=== PATIENT | female | born 1975 | race Caucasian/White ===

== ENCOUNTER 2025-08-31 03:33 | Emergency (ER) | payer BC ==
[~2025-08-31] VITALS: Ht 165.1 cm; Wt 65.9 kg
--- NOTE | 2025-08-31 04:00 | Physician Documentation ---
History of Present Illness General Chief Complaint: Abdominal Pain Stated Complaint: ABD PAIN Time Seen by MD: 03:50 History of Present Illness Initial Comments This is a 50-year-old female who presents for evaluation of lower abdominal pain, nausea, diarrhea. She states that she has SIBO and she has been treating it. She subsequently developed her symptoms. No palliating or aggravating factors. She states that her symptoms began a week ago. She has a gone to [facility] four days ago where she had received a workup including the CT scan with contrast. She received IV fluids. Her symptoms had improved. She did not request evaluation for rectal prolapse, however apparently they did not examine her for such. She has been discharged because she was feeling better. She has a recrudescence of her symptoms a proximally 48 hours after being discharged from [facility]. The pain is diffuse, started out in her lower abdomen, ascend is in her epigastrium. It is accompanied with diarrhea. She does report that when she vomitus she does not really vomiting anything, but retching makes her feel like her GI tract stuck at the junction of stomach and esophagus. Did not attempt to treat her pain with a any medication because I prefer to do everything the naturally". Medication Reconciliation Allergies: Coded Allergies: No Known Allergies (Unverified , 08/31/25) Review of Systems ROS 10 point review of systems was performed and unless noted above in HPI is negative for acute process/complaint. Physical Exam Physical Exam Vital Signs: Temperature: 98.7, Source: Oral, Heart Rate: 99, Respiratory Rate: 22, BP: 99/76, Pulse Oximetry: 100, Weight: 65.900 Physical Exam GENERAL: Awake, alert, oriented, GCS 15, no apparent distress, non-toxic appearing, answers questions, follows commands appropriately. Examined in bed 2. HEENT: Atraumatic, normocephalic, pupils equal, extraocular muscles intact, sclerae anicteric, mucus membranes moist, oropharynx is clear, no stridor. NECK: supple, full active range of motion, trachea midline, no thyromegaly, no lymphadenopathy, no JVD. CARDIOVASCULAR: regular rate/rhythm, no murmurs/gallops/rubs, Pulses are 2+ in all extremities and symmetric. Capillary refill less than 2 seconds. PULMONARY: Nonlabored, good air movement ,no respiratory distress, speaking in full sentences, clear to auscultation bilaterally, no wheezing, no ronchi, no rales, no accessory muscle use. GASTROINTESTINAL: Soft, diffuse abdominal tenderness to palpation without guarding or rebound, non-distended, normal active bowel sounds, no organomegaly, no pulsatile masses, no CVA tenderness. NEUROLOGIC: Lucid with normal mental status. Normal facial symmetry. Moves all extremities symmetrically and with purpose. No truncal ataxia. Speech is fluid without evidence of dysarthria or aphasia, no focal deficits appreciated. MUSCULOSKELETAL: There is full range of motion of all extremities. There is no joint pain or joint swelling or joint erythema. There is no muscle pain or tenderness or swelling. EXTREMITIES: warm, well-perfused, no cyanosis, no clubbing, no edema, no acute deformities. Skin: warm, dry, no rashes or lesions, no jaundice, no petechiae orpurpura. No ecchymosis. PSYCHIATRIC: Tearful affect, normal insight, normal concentration. Focused exam: [] Progress Results/Orders Results/Orders Vital Signs 08/31/25 08/31/25 08/31/25 08/31/25 03:40 04:11 04:27 05:00 Temp 98.7 98.7 98.7 Pulse 99 84 77 Resp 22 20 22 16 B/P (MAP) 99/76 123/74 (90) 116/66 (83) Pulse Ox 100 100 96 08/31/25 08/31/25 08/31/25 08/31/25 06:17 07:11 07:33 08:48 Pulse 76 80 83 Resp 16 16 16 16 B/P (MAP) 107/60 (76) 127/79 (95) 128/70 (89) Pulse Ox 97 95 97 O2 Flow Rate 0 0 0 08/31/25 08:49 Pulse 83 Resp 16 B/P (MAP) 128/70 Pulse Ox 97 Laboratory Tests Test 08/31/25 03:55 08/31/25 07:02 White Blood Count 8.3 Red Blood Count 4.65 Hemoglobin 14.0 Hematocrit 40.5 Mean Corpuscular Volume 87.2 Mean Corpuscular Hemoglobin 30.2 Mean Corpuscular Hemoglobin Concent 34.7 Red Cell Distribution Width 12.6 Platelet Count 255 Mean Platelet Volume 7.8 Neutrophils (%) (Auto) 91.3 H Lymphocytes (%) (Auto) 3.6 L Monocytes (%) (Auto) 4.6 Eosinophils (%) (Auto) 0.2 Basophils (%) (Auto) 0.3 Neutrophils # (Auto) 7.5 Lymphocytes # (Auto) 0.3 L Monocytes # (Auto) 0.4 Eosinophils # (Auto) 0.0 Basophils # (Auto) 0.0 CBC Comment Urine Specimen Description Cln catch midstream Urine Color Yellow Urine Clarity Clear Urine pH 6.0 Urine Specific [place] 1.020 Urine Protein Negative Urine Glucose (UA) Negative Urine Ketones Trace H Urine Occult Blood Trace-intact Urine Nitrite Negative Urine Bilirubin Negative Urine Urobilinogen 0.2 Urine Leukocyte Esterase Negative Urine RBC 0-2 Urine WBC 0-4 Urine Squamous Epithelial Cells None seen Urine Bacteria Few Urine Mucus Moderate Urine Culture Indicated Not ind Volume Urine Centrifuged 10 ml Urine HCG, Qualitative Negative Urine Comment Sodium Level 139 Potassium Level 3.8 Chloride Level 105 Carbon Dioxide Level 25.2 Anion Gap 9 Blood Urea Nitrogen 17 Creatinine 0.83 Estimated GFR/1.73 m2 73 BUN/Creatinine Ratio 20.5 H Glucose Level 115 H Calcium Level 8.9 Total Bilirubin 1.0 Aspartate Amino Transf (AST/SGOT) 65 H Alanine Aminotransferase (ALT/SGPT) 125 H Alkaline Phosphatase 61 Troponin I High Sensitivity < 4 L 4 Troponin I High Sens Percent Delta Troponin I Hi Sens Absolute Change Total Protein 7.7 Albumin 3.9 Globulin 3.8 Albumin/Globulin Ratio 1.0 L Lipase 27 Chemistry Comments Urine Opiates Screen Negative Urine Methadone Screen Negative Urine Fentanyl Screen Negative Urine Barbiturates Screen Negative Urine Phencyclidine Screen Negative Urine Amphetamines Screen Negative Urine Benzodiazepines Screen Negative Urine Cocaine Screen Negative Urine Cannabinoids Screen Negative Drug Screen Comment Human Chorionic Gonadotropin, Qual Negative Medical Decision Making Additional information obtaine: old records Findings Facility Status: ED Holds, [facility] process The plan was discussed with the patient, who demonstrates clear understanding of the plan and is in agreement with the plan unless otherwise noted in the chart. All questions have been answered, all concerns were addressed unless otherwise documented. I was available throughout their ED stay for frequent reassessment and questions. Differential Diagnoses (considered and possible or likely): [Differential diagnosis considered includes acute appendicitis, acute cholecystitis, pancreatitis, gastritis, PUD, diverticulitis, mesenteric ischemia, abdominal aortic aneurysm, bowel obstruction, enteritis, colitis, fecal impaction, volvulus, IBS, inflammatory bowel disease, specific food intolerance, peritonitis, perforated viscous, malignancy, UTI, abscess, and abdominal pain NOS. Pelvic source of pain was also considered including endometritis, dysmenorrhea, ovarian cyst, ovarian torsion, PID, TOA, cervicitis, vaginitis, or uterine fibroid. History, physical exam, and workup exclude many of the more serious causes listed above. ] ??Differential Diagnoses (considered and unlikely, not requiring evaluation currently): [See above] MDM Data Please see [facility] for the following: Independent Historians and external Records Review. Historian: [Patient] Independent Historians: ?[Record review] Medication Management: [Reviewed medication list] Social History and determinants: [Reviewed] Please see the body of the note for the following: Any independent interpretations of ECG, imaging studies. All vitals signs/haemodynamics, ordered tests were independently reviewed and interpreted by myself. Nursing triage complaint and vitals reviewed, additional nursing notes were reviewed as available and I agree unless otherwise noted or documented in contradiction in the chart Vital Signs: Independently reviewed Labs: Independently interpreted Imaging: Independently interpreted Old Medical Records: Independently reviewed, see [facility] for relevant summary and information Pulse Oximetry: [97%] interpreted as [normal on room air] by me [Hunter Trapper: [Regular Rate, Regular rhythm, no ectopy, NSR] reviewed and interpreted by me] Additionally notably showing: [Hemodynamics reviewed. The patient is not febrile, not tachycardic, blood pressure in the soft side with a systolic of 99, improved with fluids. No evidence of respiratory distress. CBC normal, no leukocytosis, however there was 91% neutrophilic predominance. Hemoglobin is 14, normal. Normal platelets. Chemistry shows dehydration. Transaminitis and nonspecific pattern. Troponin is negative. UA isn't nondiagnostic for UTI. She is not . Toxicology screen is negative. CT shows no acute intra-abdominal process] Tests considered but not ordered include: [Colonoscopy can be done on an outpatient basis] Social Determinants of Health Impact: Patient was evaluated in [facility], [facility] [place] healthcare due to below par ratio of patient to medical providers. [] Comorbid Conditions Impacting Present Evaluation and Care/Treatment: The patient reports history of SIBO Management Discussions with other Healthcare Providers: [] Treatment and Disposition Medication Management (Given or considered): [Pain management and nausea jack gement, Fluid resuscitation was provided for treatment of clinically and/or laboratory apparent dehydration.]. See EMR for details Consideration for Hospitalization/Escalation/Deescalation of Care: Admission for observation has been considered, [however the patient is able to tolerate p.o., their symptoms are controlled, they are able to rely on oral medications, and their chief complaint/diagnosis can be managed on outpatient basis.] ?ED Course:?[] ?Shared decision making:?[] Code status:?FULL Please see the full Electronic Medical Record for full details of nursing documentation, medications list, other records of complete past medical history and conditions, vital signs, laboratory studies, and any radiologic study interpretations by radiologists. Portions of this note were completed using [facility] dictation software and as a result there may exist minor errors in spelling. I have reviewed elements of past family and social history and agree as included in note. Differential Diagnosis See body of main note for differential diagnosis Addendum Sign-out note I received sign-out on this patient at shift change. Pending abdominal imaging I reviewed her CT scan and ultrasound. These do not show any acute or dangerous processes to explain her pain. Re-evaluation: The patient is resting in bed, denies significant symptoms at this time. I explained the results of her testing and she felt comfortable going home with outpatient follow up. Alex Banks MD Departure Time of Disposition: 08:41 Disposition: 01 HOME / SELF CARE / HOMELESS Impression: Primary Impression: Diarrhea Condition: Stable Discharge Instructions: Abdominal Pain (Nonspecific) Referrals: NO PRIMARY CARE PROVIDER (PCP) Education Educated: Patient Educated regarding: need for follow up Signature Scribe Signature: No scribe Attestation: The note accurately reflects work and decisions made by me.Saleem Machado DO 08/31/25 04:01 SALEEM MACHADO DO Aug 31, 2025 04:00 ALEX BANKS MD Aug 31, 2025 08:41
[2025-08-31] MEDS: ketorolac trometh 30MG/ML vial 30 MG/ML VIAL IV ONE (04:04)
[2025-08-31] MEDS: normal saline 1000ML IV soln IVB ONE (04:05)
[2025-08-31 04:17] LABS: MEAN PLATELET VOLUME 7.8 FL (7.4-10.4); RED CELL DISTRIBUTION WIDTH 12.6 % (11.5-14.5)
[2025-08-31 04:25] LABS: URINE HCG NEGATIVE (NEG)
[2025-08-31 04:29] LABS: LEUKOCYTE ESTERASE ,URINE NEGATIVE (Neg); OCCULT BLOOD,URINE TRACE-INTACT (Neg)
[2025-08-31 04:35] LABS: CREATININE 0.83 MG/DL (0.40-0.90); TOTAL CARBON DIOXIDE 25.2 MMOL/L (24-32); eCRCL 73 ML/MIN; eGFR 73 ML/MIN
[2025-08-31 04:39] LABS: URINE AMPHETAMINE SCREEN NEGATIVE (Neg); URINE BARBITUATE SCREEN NEGATIVE (Neg); URINE BENZODIAZEPINES SCREEN NEGATIVE (Neg); URINE CANNABINOID SCREEN NEGATIVE (Neg); URINE COCAINE SCREEN NEGATIVE (Neg); URINE METHADONE SCREEN NEGATIVE (Neg); URINE OPIATE SCREEN NEGATIVE (Neg); URINE PHENCYCLIDINE SCREEN NEGATIVE (Neg)
[2025-08-31 04:43] LABS: NITRITES, URINE NEGATIVE (Neg); UA COLLECTION TYPE CLN CATCH MIDSTREAM
[2025-08-31 04:45] LABS: MUCUS STRANDS MODERATE /LPF (Neg); SQUAMOUS EPITHELIAL CELL,UR NONE SEEN /LPF (FEW)
[2025-08-31] MEDS ORDERED: iohexol 300mg/ml 100ml inj. ONE (04:57)
[2025-08-31 05:00] VITALS: TEMP 98.7
--- NOTE | 2025-08-31 05:45 | RADIOLOGY REPORT ---
MEDICAL RECORDS NUMBER: [id number] PROCEDURE: CT CT ABDOMEN PELVIS W/ IV CONTRAST DATE: 08/31/2025 05:02 AM HISTORY: Lower abdominal pain, nausea, diarrhea TECHNIQUE: CT of the chest, abdomen and pelvis is performed with IV contrast. IV Contrast: Omnipaque 300, 100 cc Oral Contrast: No oral contrast was utilized. COMPARISON: None RADIATION DOSE INFORMATION: Automated exposure control dose reduction techniques were used. FINDINGS: Lungs: The lungs appear clear. Mediastinum:Mediastinal structures appear unremarkable. Liver: The liver is normal in size. There is no focal liver lesion. Biliary ducts: There is no evidence of intrahepatic or extrahepatic biliary ductal dilatation. Gallbladder: No abnormality is seen of the gallbladder. Spleen: The spleen is normal in size without focal lesion. Stomach: The stomach appears unremarkable. Pancreas: The pancreas is unremarkable. Adrenal glands: The adrenal glands are unremarkable. Kidneys: The kidneys appear grossly unremarkable. No hydronephrosis is seen. No focal lesions are seen. No renal or ureteral stones are seen. Aorta and IVC: The aorta and IVC are patent and are normal in size. Mesenteric vessels: Major mesenteric vessels appear to be intact. Bowel: The visualized portions of the small and large bowel are normal in caliber. Surgical changes are seen of the cecum. Appendix: The appendix is not seen. Pelvis:Pelvic structures appear unremarkable. Lymph nodes: There is no evidence of lymphadenopathy. Osseous structures: The osseous structures are intact. No lytic or blastic osseous lesion is noted. Free fluid/free air: None IMPRESSION: 1. No acute process is seen. No findings are seen to explain the patient's symptoms.
--- NOTE | 2025-08-31 08:27 | RADIOLOGY REPORT ---
INDICATION: lower abd pain TECHNIQUE: Multiple real-time grayscale transabdominal sonographic images along with color and duplex Doppler of the uterus and ovaries were obtained.. COMPARISON: None FINDINGS: The uterus measures 8.0 x 3.3 x 4.0 cm. The uterus is homogenous in echotexture. The endometrial stripe measures 0.5 cm. Although the ovaries are detected, they are not well evaluated due to transabdominal technique. The right ovary measures 3.0 x 2.4 x 1.8 cm. The left ovary measures 2.7 x 1.9 x 3.1 cm. Subsequent color and duplex Doppler interrogation of the ovaries demonstrated symmetric vascular flow. No free fluid in the cul-de-sac. IMPRESSION: 1. Although the ovaries are identified and demonstrate flow, they are suboptimally evaluated due to transabdominal technique. Transvaginal ultrasound is recommended for better evaluation. 2. No uterine mass or endometrial thickening.
[2025-08-31 08:34] LABS: HCG SERUM QL NEGATIVE
[2025-08-31 08:49] VITALS: BP 128/70; PULSE 83; RESP 16; O2SAT 97
== END 2025-08-31 08:53 | disposition home or self-care (01) ==
LOC: ER 03:34
DX: R19.7 Diarrhea, unspecified (principal); R10.30 Lower abdominal pain, unspecified; R11.2 Nausea with vomiting, unspecified; Z79.899 Other long term (current) drug therapy
CPT/HCPCS: 36415; 74177; 76856; 80053; 80305; 81001; 81025; 83690; 84484; 84703; 85025; 93976; 96361; 96374; 96375; 99285; J0780; J1885; J7030; Q9967